=== PATIENT | female | born 1955 | race African-American/Black ===

== ENCOUNTER 2018-07-01 07:07 | Inpatient (IN) | payer OTHER ==
[~2018-07-01] VITALS: Ht 165.1 cm; Wt 96.2 kg
[2018-07-01 07:55] LABS: EOSINOPHILS % 2.5 % (0.0-5.0); HEMATOCRIT. 37.6 % (36.0-48.0); HEMOGLOBIN. 12.6 g/dL (12.0-16.0); LYMPHOCYTES % 43.2 % (20.0-50.0); MEAN CORPUSCULAR HEMOGLOBIN 29.6 pg (28.0-32.0); MEAN CORPUSCULAR VOLUME 88.5 fL (81.0-99.0); MEAN PLATELET VOLUME 9.8 fl (7.4-10.4); MONOCYTES % 6.4 % (2.0-8.0); NEUTROPHILS % 46.9 % (40.0-76.0); PLATELET 194 x1000/uL (130-400); RED BLOOD CELL COUNT 4.25 mill/uL (4.2-5.4)
[2018-07-01 08:01] LABS: CHLORIDE 103 mEq/L (98-107)
[2018-07-01 08:43] LABS: CLARITY URINE CLEAR (CLEAR); COLOR URINE YELLOW (YELLOW); KETONES URINE NEGATIVE (NEGATIVE); LEUKOCYTE ESTERASE URINE NEGATIVE (NEGATIVE); NITRITE URINE NEGATIVE (NEGATIVE); OCCULT BLOOD URINE NEGATIVE (NEGATIVE); PH URINE 5.5 (4.5-8.0); PROTEIN URINE NEGATIVE (NEGATIVE); SPECIFIC GRAVITY URINE 1.003 (1.005-1.030); UROBILINOGEN URINE 0.2 E.U./dL (0.2-1.0)
[2018-07-01] MEDS ORDERED: ASPIRIN 325MG EC TABLET PO ONE (09:15)
[2018-07-01 15:49] VITALS: BP 158/70
[2018-07-01] MEDS ORDERED: ATOR10TA69 MT (16:09)
[2018-07-01] MEDS ORDERED: OMEP40CA34 MT (16:09)
[2018-07-01] MEDS ORDERED: GLYB5TAB7 MT (16:09)
[2018-07-01] MEDS ORDERED: NIFE30TA83 MT (16:09)
[2018-07-01 20:00] VITALS: BP 131/65
[2018-07-01] MEDS ORDERED: ONDANSETRON HCL 4MG/2ML INJ IV PRN (20:00)
[2018-07-01] MEDS ORDERED: CLONIDINE 0.1MG TABLET PO PRN (20:00)
[2018-07-01] MEDS ORDERED: ACETAMINOPHEN 325MG TABLET PO PRN (20:00)
[2018-07-01 20:06] LABS: ETHANOL BLOOD < 10 mg/dL
[2018-07-01 20:09] LABS: LDL CHOLESTEROL 94 mg/dL (5-100)
[2018-07-01 20:11] LABS: HDL CHOLESTEROL 49 mg/dL (40-59); T4 FREE 0.96 ng/dL (0.76-1.46)
[2018-07-01] MEDS ORDERED: LORAZEPAM 2MG/ML CPJ IV NR (21:00)
[2018-07-01 21:14] LABS: VITAMIN B12 SERUM 865 pg/mL (211-911)
[2018-07-01] MEDS ORDERED: DEXTROSE 50% WATER 50ML SYRINGE IV PRN (21:15)
[2018-07-01 21:19] LABS: FOLIC ACID (FOLATE) SERUM > 20.00 ng/mL (>5.38)
[2018-07-01] MEDS: BLOOD SUGAR DIAGNOSTIC STRIP TEST SCH (21:34)
[2018-07-01] MEDS: ATORVASTATIN CALCIUM 10MG TABLET PO SCH (21:37)
[2018-07-01] MEDS: NIFEDIPINE XL 30MG TAB PO SCH (21:38)
[2018-07-01] MEDS: INSULIN LISPRO 100 UNITS/ML SUBCUT SCH (21:41)
[2018-07-02] VITALS: BP 152/64
[2018-07-02 04:00] VITALS: BP 142/63
[2018-07-02] MEDS: BLOOD SUGAR DIAGNOSTIC STRIP TEST SCH ×4 (06:04→21:11)
[2018-07-02] MEDS: INSULIN LISPRO 100 UNITS/ML SUBCUT SCH ×4 (06:14→20:19)
[2018-07-02] MEDS ORDERED: BLOOD SUGAR DIAGNOSTIC STRIP TEST SCH (07:10)
[2018-07-02] MEDS ORDERED: INSULIN LISPRO 100 UNITS/ML SUBCUT SCH (07:40)
[2018-07-02 07:54] LABS: BASOPHILS % 0.7 % (0.0-2.0); EOSINOPHILS % 2.4 % (0.0-5.0); HEMATOCRIT. 39.7 % (36.0-48.0); HEMOGLOBIN. 12.9 g/dL (12.0-16.0); MEAN CORPUSCULAR VOLUME 89.2 fL (81.0-99.0); MEAN PLATELET VOLUME 10.1 fl (7.4-10.4); MONOCYTES % 6.7 % (2.0-8.0); NEUTROPHILS % 40.2 % (40.0-76.0); PLATELET 194 x1000/uL (130-400); RED BLOOD CELL COUNT 4.45 mill/uL (4.2-5.4); RED CELL DISTRIBUTION WIDTH 13.4 % (11.6-14.6)
[2018-07-02 08:00] VITALS: BP 138/80
[2018-07-02] MEDS: ATORVASTATIN CALCIUM 10MG TABLET PO SCH (08:13)
[2018-07-02] MEDS: GLYBURIDE 5MG TABLET PO SCH (08:13)
[2018-07-02] MEDS: NIFEDIPINE XL 30MG TAB PO SCH (08:14)
[2018-07-02 08:30] LABS: *AMPHETAMINES SCREEN URINE NEGATIVE (NEGATIVE); *BARBITURATES SCREEN URINE NEGATIVE (NEGATIVE)
[2018-07-02 08:31] LABS: *BENZODIAZEPINES SCREEN URINE NEGATIVE (NEGATIVE); *COCAINE SCREEN URINE NEGATIVE (NEGATIVE); CANNABINOID URINE SCREEN NEGATIVE (NEGATIVE); METHADONE URINE SCREEN NEGATIVE (NEGATIVE); OPIATES URINE SCREEN NEGATIVE (NEGATIVE); PHENCYCLIDINE URINE SCREEN NEGATIVE (NEGATIVE)
[2018-07-02 09:37] LABS: CHLORIDE 104 mEq/L (98-107)
[2018-07-02 12:00] VITALS: BP 103/67
[2018-07-02 15:53] VITALS: BP 115/65
[2018-07-02] MEDS ORDERED: LORAZEPAM 2MG/ML CPJ IV NR (17:34)
[2018-07-02 20:00] VITALS: BP 156/80
[2018-07-03 00:04] VITALS: BP 124/50
[2018-07-03 05:00] VITALS: BP 144/56
[2018-07-03] MEDS: BLOOD SUGAR DIAGNOSTIC STRIP TEST SCH ×4 (06:04→21:19)
[2018-07-03] MEDS: INSULIN LISPRO 100 UNITS/ML SUBCUT SCH ×4 (06:05→21:28)
[2018-07-03 08:00] VITALS: BP 156/70
[2018-07-03] MEDS: NIFEDIPINE XL 30MG TAB PO SCH (08:20)
[2018-07-03] MEDS: GLYBURIDE 5MG TABLET PO SCH (08:20)
[2018-07-03] MEDS: ATORVASTATIN CALCIUM 10MG TABLET PO SCH (08:20)
[2018-07-03 12:00] VITALS: BP 123/69
[2018-07-03] MEDS: GABAPENTIN 300MG CAPSULE PO SCH ×2 (13:05→21:26)
[2018-07-03 16:00] VITALS: BP 120/86
[2018-07-03 20:00] VITALS: BP 144/60
[2018-07-04] VITALS: BP 120/53
[2018-07-04 04:00] VITALS: BP 119/66
[2018-07-04] MEDS: BLOOD SUGAR DIAGNOSTIC STRIP TEST SCH ×4 (05:53→21:45)
[2018-07-04] MEDS: GABAPENTIN 300MG CAPSULE PO SCH ×3 (05:53→21:43)
[2018-07-04] MEDS: INSULIN LISPRO 100 UNITS/ML SUBCUT SCH ×4 (05:54→21:45)
[2018-07-04] MEDS: GLYBURIDE 5MG TABLET PO SCH (08:34)
[2018-07-04] MEDS: ATORVASTATIN CALCIUM 10MG TABLET PO SCH (08:34)
[2018-07-04] MEDS: NIFEDIPINE XL 30MG TAB PO SCH (08:34)
[2018-07-04 12:16] VITALS: BP 127/68
[2018-07-04 16:00] VITALS: BP 144/74
[2018-07-04 20:00] VITALS: BP 127/73
[2018-07-05] VITALS: BP 130/66
[2018-07-05 04:00] VITALS: BP 116/65
[2018-07-05] MEDS: GABAPENTIN 300MG CAPSULE PO SCH ×2 (05:37→14:42)
[2018-07-05] MEDS: INSULIN LISPRO 100 UNITS/ML SUBCUT SCH ×2 (06:16→12:40)
[2018-07-05] MEDS: BLOOD SUGAR DIAGNOSTIC STRIP TEST SCH ×2 (06:16→12:10)
[2018-07-05] MEDS: NIFEDIPINE XL 30MG TAB PO SCH (10:04)
[2018-07-05] MEDS: GLYBURIDE 5MG TABLET PO SCH (10:04)
[2018-07-05] MEDS: ATORVASTATIN CALCIUM 10MG TABLET PO SCH (10:04)
[2018-07-05 14:35] VITALS: BP 140/68
== END 2018-07-05 15:15 | disposition home or self-care (01) | DRG 347 ==
LOC: ER 07:07 → 8WST 09:33 → EDBEDREQ 09:37 → ENRESERV 14:23
PROVIDERS: ADMIT Internal Medicine; ATTEND Internal Medicine
DX: M48.02 Spinal stenosis, cervical region (principal); G45.9 Transient cerebral ischemic attack, unspecified; E11.9 Type 2 diabetes mellitus without complications; F17.210 Nicotine dependence, cigarettes, uncomplicated; I10 Essential (primary) hypertension; E78.00 Pure hypercholesterolemia, unspecified; E87.6 Hypokalemia; Z90.710 Acquired absence of both cervix and uterus; Z79.899 Other long term (current) drug therapy; R26.9 Unspecified abnormalities of gait and mobility
CPT/HCPCS: 36415; 70544; 70553; 71045; 72141; 80048; 80061; 80305; 82607; 82746; 82962; 83036; 84439; 84443; 84481; 93306; 93880; 97162; 97165; 99285; G0482; J1815; J2060